=== PATIENT | male | born 2005 | race Hispanic/Latino ===

== ENCOUNTER 2023-08-14 11:59 | Emergency (ER) | payer OTHER, SELFPAY ==
[2023-08-14 12:00] VITALS: BP 149/95; PULSE 89; RESP 16; TEMP 36.6; O2SAT 99
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
--- NOTE | 2023-08-14 12:46 | RAD_ITS ---
STUDY: X-RAY - RIGHT ANKLE REASON FOR EXAM: Male, 17 years old. Pain following injury. TECHNIQUE: 3 view(s) of the ankle. COMPARISON: None. FINDINGS: Normal visualized distal tibia and fibula. Normal medial and lateral malleoli. Normal tibiotalar articulation and ankle mortise. Normal visualized talus and calcaneus. The visualized subtalar, talonavicular, calcaneocuboid and tarsal articulations are normal. Lateral soft tissue swelling. RAD/Ankle min 3 Views IMPRESSION: Lateral soft tissue swelling. Electronically Signed: Hector Mitchell MD at 14:21 EDT ,
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
[2023-08-14 13:00] VITALS: BMI 25.6
[2023-08-14] MEDS: Diphth,Pertuss(Acell),Tet Vac 0.5 ML Vial IM (13:06)
[2023-08-14] MEDS: Oxycodone/Apap 5/325 Tablet PO (13:07)
--- NOTE | 2023-08-14 13:47 | RAD_ITS ---
STUDY: X-RAY - RIGHT FOOT CLINICAL: Male, 17 years old. Pain following injury. TECHNIQUE: 3 view(s) of the foot. COMPARISON: None. FINDINGS: Normal talus, calcaneus, and tarsal bones. Normal visualized subtalar, talonavicular, calcaneocuboid, tarsal and tarsometatarsal articulations. Normal metatarsi. Normal metatarsophalangeal joint of the great toe. Normal tibial and fibular sesamoid bones. Normal interphalangeal joint of the great toe. Normal phalanges of the great toe. Normal second through fifth metatarsophalangeal joints. Normal interphalangeal joints and phalanges of the lesser toes. Dorsal soft tissue swelling. RAD/Foot min 3 Views IMPRESSION: Dorsal soft tissue swelling. Electronically Signed: Hector Mitchell MD at 14:08 EDT ,
[2023-08-14 14:00] VITALS: BP 140/73; PULSE 75; RESP 18; O2SAT 97
[2023-08-14 14:05] VITALS: BP 135/75; PULSE 75; RESP 16; O2SAT 97
[2023-08-14 15:05] VITALS: BP 118/74; PULSE 87; RESP 16; O2SAT 99
[2023-08-14 15:38] VITALS: BP 128/73; PULSE 85; RESP 16; TEMP 36.6; O2SAT 99
== END 2023-08-14 15:40 | disposition home or self-care (01) ==
PROVIDERS: Emergency Provider Emergency Medicine; Visit Provider Emergency Medicine
DX: S93.401A Sprain of unspecified ligament of right ankle, initial encounter (principal); S80.11XA Contusion of right lower leg, initial encounter; W19.XXXA Unspecified fall, initial encounter
CPT/HCPCS: 73564; 73610; 73630; 90715; 99285